=== PATIENT | female | born 1955 | race Hispanic/Latino ===

== ENCOUNTER 2019-01-21 11:05 | Day surgery (SDC) | payer MEDICARE ==
[~2019-01-21 11:05] MED LIST: IOPIDINE ONE; NEOFRIN ONE
[2019-01-21] MEDS ORDERED: IOPIDINE OS ONE (11:27)
[2019-01-21] MEDS ORDERED: NEOFRIN OS ONE (11:28)
[2019-01-21] MEDS ORDERED: MYDRIACYL OS ONE (11:29)
[2019-01-21 11:48] VITALS: BP 106/68
== END 2019-01-21 12:49 | disposition home or self-care (01) ==
LOC: OR 11:05
PROVIDERS: ATTEND Specialist
DX: H26.492 Other secondary cataract, left eye (principal); Z88.5 Allergy status to narcotic agent; Z98.41 Cataract extraction status, right eye; Z98.42 Cataract extraction status, left eye; Z85.068 Personal history of other malignant neoplasm of small intestine; Z90.710 Acquired absence of both cervix and uterus; Z72.89 Other problems related to lifestyle; Z87.891 Personal history of nicotine dependence; Z98.890 Other specified postprocedural states